=== PATIENT | female | born 1940 | race Caucasian/White ===

== ENCOUNTER 2016-11-15 10:30 | Emergency (ER) | payer MEDICARE ==
[2016-11-15 10:36] VITALS: BP 130/69; PULSE 64; RESP 17; TEMP 98.5; O2SAT 100
--- NOTE | 2016-11-15 11:25 | C.PDOC ---
History Of Present Illness 76 year old female presents to ED with complaints of left upper gum and tooth pain for few days. She reports losing her tooth filling few months ago. Denies fever or bleeding. Time Seen by Provider: 11/15/16 11:05 Chief Complaint (Nursing): Dental Pain History Per: Patient History/Exam Limitations: no limitations Onset/Duration Of Symptoms: Days Severity: Moderate Past Medical History Reviewed: Historical Data, Nursing Documentation, Vital Signs Vital Signs: Last Vital Signs Temp 98.5 F 11/15/16 10:34 Pulse 64 11/15/16 10:34 Resp 17 11/15/16 10:34 BP 130/69 11/15/16 10:34 Pulse Ox 100 11/15/16 10:34 - Medical History PMH: Anxiety, HTN - [facility] Procedures COLONOSCOPY (03/30/14) Family History: States: Unknown Family Hx - Social History Hx Alcohol Use: No Hx Substance Use: No - Immunization History Hx Tetanus Toxoid Vaccination: No Hx Influenza Vaccination: Yes Hx Pneumococcal Vaccination: Yes Review Of Systems Except As Marked, All Systems Reviewed And Found Negative. ENT: Positive for: Mouth Pain Physical Exam - Physical Exam Appears: Non-toxic, No Acute Distress Skin: Warm, Dry, No Rash Head: Atraumatic, Normacephalic Eye(s): bilateral: Normal Inspection, EOMI Nose: Normal Oral Mucosa: Moist Tongue: Normal Appearing, No Swelling Lips: Normal Appearing, No Swelling Teeth: Caries Gingiva: Erythema (mildly swollen and irritated ginigiva above the left lateral incisor and canine) Throat: Normal, No Erythema, No Exudate, No Drooling Neck: Normal ROM Chest: Symmetrical Cardiovascular: Rhythm Regular, No Murmur Respiratory: Normal Breath Sounds, No Accessory Muscle Use, No Rhonchi, No Wheezing Extremity: Bilateral: Atraumatic, Normal ROM Neurological/Psych: Oriented x3 ED Course And Treatment O2 Sat by Pulse Oximetry: 100 Medical Decision Making Medical Decision Making: Impression: mouth pain Plan: Penicillin VK and Ibuprofen Progress, Reassess and Dispo: Patient remained afebrile and in no distress. Reports pain is improving. Advised to follow up with dental clinic Disposition Counseled Patient/Family Regarding: Diagnosis, Need For Followup, Rx Given - Disposition Referrals: Santy Agudelo [facility] [employer] [place] [Outside] Disposition Time: 11:22 Condition: STABLE Additional Instructions: It is important that you follow up with your dentist or dental clinic in timely manner Take antibiotics as prescribed and take pain medicine as needed Prescriptions: Penicillin VK [Penicillin VK Tab] 500 mg PO Q12 #20 tab Instructions: Gingivitis (ED) - POA Present On Arrival: None - Clinical Impression Clinical Impression: Gingivitis, Dental caries
== END 2016-11-15 11:30 | disposition home or self-care (01) ==
LOC: C.ER 10:30
DX: K02.9 Dental caries, unspecified (principal); K05.10 Chronic gingivitis, plaque induced